=== PATIENT | male | born 1990 | race Caucasian/White ===

== ENCOUNTER 2016-12-30 06:22 | Emergency (ER) | payer BC, OTHER ==
[~2016-12-30] VITALS: Ht 172.7 cm; Wt 64.2 kg
[2016-12-30 06:34] VITALS: BP 169/90; PULSE 92; RESP 18; TEMP 98.7; O2SAT 99
[2016-12-30 06:36] VITALS: BP 169/90; PULSE 92; RESP 18; TEMP 98.7; O2SAT 99
--- NOTE | 2016-12-30 06:44 | PD ---
HPI Chief Complaint: Numbness/Tingling Time Seen by Provider: 06:35 Travel History International Travel<30 days: No Contact w/Intl Traveler<30days: No Traveled to known affect area: No History of Present Illness HPI The patient is a 26-year-old male who has multiple complaints beginning approximately 7 PM yesterday. He has tingling in his chest, numbness on his entire left arm, a feeling of hotness over the entire face and tingling in both feet. He has a history of alcohol overdose in 2015 where these alcohol level is 269 and his toxicology's [place] showed positive for opiates. He states for the last 3 days he has had nausea, vomiting and diarrhea. He has been replacing his fluids with Gatorade and water. He drinks 416 ounce beers per week. He is not on any medications. PFSH Past Medical History Blood Disorders: No Cancer: No Cardiovascular Problems: No Diminished Hearing: No Endocrine: No Genitourinary: No Musculoskeletal: No Neurologic: No Psychiatric: No Reproductive: No Respiratory: No Integumentary: Yes (DERMATITIS) Social History Alcohol Use: Yes (3 TIMES/WEEK) Tobacco Use: Yes (1 PPD) Substance Use: No Allergies-Medications (Allergen,Severity, Reaction): Coded Allergies: No Known Allergies (Unverified , 12/30/16) Reported Meds & Prescriptions Reported Meds & Active Scripts Active No Active Prescriptions or Reported Medications Review of Systems Except as stated in HPI: all other systems reviewed are Neg Physical Exam Narrative GENERAL: The patient is alert, oriented 3, possibly slightly dehydrated in no apparent distress. His vital signs show blood pressure 169/90 with pulse rate of 92 but otherwise normal. SKIN: Focused skin assessment warm/dry. No skin rash is seen. HEAD: Atraumatic. Normocephalic. EYES: Pupils equal and round. No scleral icterus. No injection or drainage. ENT: No nasal bleeding or discharge. Mucous membranes pink and moist. NECK: Trachea midline. No JVD. CARDIOVASCULAR: Regular rate and rhythm. No murmur appreciated. RESPIRATORY: No accessory muscle use. Clear to auscultation. Breath sounds equal bilaterally. GASTROINTESTINAL: Abdomen soft, non-tender, nondistended. Hepatic and splenic margins not palpable. MUSCULOSKELETAL: No obvious deformities. No clubbing. No cyanosis. No edema. NEUROLOGICAL: Awake and alert. No obvious cranial nerve deficits. Motor grossly within normal limits. Normal speech and gait. PSYCHIATRIC: Appropriate mood and affect; insight and judgment normal. Data Data Last Documented VS Vital Signs Date Time Temp Pulse Resp B/P Pulse Ox O2 Delivery O2 Flow Rate FiO2 12/30/16 06:36 98.7 92 18 169/90 99 Room Air Orders Complete Blood Count With Diff (12/30/16 06:36) Comprehensive Metabolic Panel (12/30/16 06:36) Urinalysis - C+S If Indicated (12/30/16 06:36) Magnesium (Mg) (12/30/16 06:36) Chest, Pa & Lat (12/30/16 06:36) Ct Brain W/O Iv Contrast(Rout) (12/30/16 06:36) Drug Screen, Random Urine (12/30/16 06:36) Alcohol (Ethanol) (12/30/16 06:36) Tylenol (Acetaminophen) (12/30/16 06:36) Sodium Chlor 0.9% 1000 Ml Inj (Ns 1000 M (12/30/16 07:00) Labs Laboratory Tests Test 12/30/16 06:35 White Blood Count 6.0 TH/MM3 Red Blood Count 5.48 MIL/MM3 Hemoglobin 16.6 GM/DL Hematocrit 48.2 % Mean Corpuscular Volume 87.9 FL Mean Corpuscular Hemoglobin 30.3 PG Mean Corpuscular Hemoglobin 34.5 % Concent Red Cell Distribution Width 11.7 % Platelet Count 305 TH/MM3 Mean Platelet Volume 6.7 FL Neutrophils (%) (Auto) 52.5 % Lymphocytes (%) (Auto) 36.0 % Monocytes (%) (Auto) 8.5 % Eosinophils (%) (Auto) 1.2 % Basophils (%) (Auto) 1.8 % Neutrophils # (Auto) 3.1 TH/MM3 Lymphocytes # (Auto) 2.2 TH/MM3 Monocytes # (Auto) 0.5 TH/MM3 Eosinophils # (Auto) 0.1 TH/MM3 Basophils # (Auto) 0.1 TH/MM3 CBC Comment DIFF FINAL Differential Comment MDM Medical Decision Making Medical Screen Exam Complete: Yes Emergency Medical Condition: Yes Medical Record Reviewed: Yes Differential Diagnosis Gastroenteritis, dehydration, electrolyte imbalance, CVAunlikely, alcohol/drug overdoseunlikely Narrative Course It is now 0700 and the patient is transferred to Dr. Alcazar. Scripts No Active Prescriptions or Reported Meds Kenan Galvan MD Dec 30, 2016 06:44
[2016-12-30 06:49] LABS: AUTOMATED NEUTROPHIL # 3.1 TH/MM3 (1.8-7.7); BASOPHIL # 0.1 TH/MM3 (0-0.2); BASOPHIL % 1.8 % (0.0-2.0); EOSINOPHIL # 0.1 TH/MM3 (0-0.4); EOSINOPHIL % 1.2 % (0.0-4.0); HEMATOCRIT 48.2 % (39.0-51.0); HEMO FLAGS DIFF FINAL; LYMPHOCYTE # 2.2 TH/MM3 (1.0-4.8); MEAN CELL VOLUME 87.9 FL (80.0-100.0); MEAN CORPUSCULAR HEMOGLOBIN 30.3 PG (27.0-34.0); MEAN CORPUSCULAR HGB CONC 34.5 % (32.0-36.0); MONO % 8.5 % (0.0-8.0); NEUT % 52.5 % (16.0-70.0); PLATELET COUNT 305 TH/MM3 (150-450); RED BLOOD COUNT 5.48 MIL/MM3 (4.50-5.90); RED CELL DISTRIBUTION WIDTH 11.7 % (11.6-17.2)
[2016-12-30 06:59] LABS: CHLORIDE 101 MEQ/L (98-107); POTASSIUM 3.7 MEQ/L (3.5-5.1); SODIUM (NA) 138 MEQ/L (136-145)
[2016-12-30 06:59] LABS: BLOOD, URINE NEG (NEG); GLUCOSE,URINE NEG (NEG); KETONE, URINE 15 mg/dL (NEG); NITRITE,URINE NEG (NEG)
[2016-12-30] MEDS ORDERED: SODIUM CHLOR 0.9% 1000 ML INJ 1,000 ML IV ONE ×2 (07:00→07:15)
[2016-12-30 07:02] LABS: METHOD OF COLLECTION CLEAN CATCH; URINE COLOR YELLOW (YELLW/STRAW)
[2016-12-30 07:03] LABS: ANION GAP 12 MEQ/L (5-15); BICARBONATE 25.5 MEQ/L (21.0-32.0); MAGNESIUM 2.1 MG/DL (1.5-2.5)
[2016-12-30 07:03] LABS: CULTURE IF INDICATED CULT NOT INDICATED; RBC, URINE 0-3 /hpf (0-3); SQUAMOUS EPITHELIAL CELL URINE 0-5 /hpf (0-5)
[2016-12-30 07:04] LABS: COMMENT (UR) CULT NOT INDICATED; COMMENT2 (UR) MUCOUS PRESENT
[2016-12-30 07:04] LABS: BLOOD UREA NITROGEN 9 MG/DL (7-18)
[2016-12-30 07:05] LABS: AMPHETAMINE, URINE NEG (NEG); BARBITURATES, URINE NEG (NEG); COCAINE, URINE NEG (NEG)
[2016-12-30 07:06] LABS: ALT (GPT) 37 U/L (12-78); AST (GOT) 39 U/L (15-37)
[2016-12-30 07:07] LABS: GLOMERULAR FILTRATION RATE 96 ML/MIN (>89)
[2016-12-30 07:08] LABS: TOTAL BILIRUBIN ADULT 1.7 MG/DL (0.2-1.0)
[2016-12-30 07:09] LABS: ALKALINE PHOSPHATASE 84 U/L (45-117)
--- NOTE | 2016-12-30 07:14 | RADHPO ---
EXAM DATE/TIME: 12/30/2016 06:44 [facility] COMPARISON: No previous studies available for comparison. INDICATIONS : Left sides extremity numbness and tingling. RADIATION DOSE: 64.62 CTDIvol (mGy) MEDICAL HISTORY : None SURGICAL HISTORY : None. ENCOUNTER: Initial ACUITY: 1 day PAIN SCALE: 0/10 LOCATION: cranial TECHNIQUE: Multiple contiguous axial images were obtained of the head. Using automated exposure control and adj ustment of the mA and/or kV according to patient size, radiation dose was kept as low as reasonably a chievable to obtain optimal diagnostic quality images. FINDINGS: CEREBRUM: The ventricles are normal for age. No evidence of midline shift, mass lesion, hemorrhage or acute in farction. No extra-axial fluid collections are seen. POSTERIOR FOSSA: The cerebellum and brainstem are intact. The 4th ventricle is midline. The cerebellopontine angle i s unremarkable. EXTRACRANIAL: The visualized portion of the orbits is intact. SKULL: The calvaria is intact. No evidence of skull fracture. CONCLUSION: Normal examination for a patient of this age. Willem Alonzo MD on December 30, 2016 at 7:12 Board Certified Radiologist. This report was verified electronically.
[2016-12-30] MEDS ORDERED: ONDANSETRON HCL 4 MG/2 ML VIAL IV PUSH ONE (07:15)
[2016-12-30] MEDS ORDERED: LORazepam 2 MG/ML VIAL IV PUSH ONE (07:15)
--- NOTE | 2016-12-30 07:16 | PD ---
Physical Exam Date Seen by Provider: Dec 30, 2016 Data Data Last Documented VS Vital Signs Date Time Temp Pulse Resp B/P Pulse Ox O2 Delivery O2 Flow Rate FiO2 12/30/16 06:36 98.7 92 18 169/90 99 Room Air Orders Complete Blood Count With Diff (12/30/16 06:36) Comprehensive Metabolic Panel (12/30/16 06:36) Urinalysis - C+S If Indicated (12/30/16 06:36) Magnesium (Mg) (12/30/16 06:36) Chest, Pa & Lat (12/30/16 06:36) Ct Brain W/O Iv Contrast(Rout) (12/30/16 06:36) Drug Screen, Random Urine (12/30/16 06:36) Alcohol (Ethanol) (12/30/16 06:36) Tylenol (Acetaminophen) (12/30/16 06:36) Sodium Chlor 0.9% 1000 Ml Inj (Ns 1000 M (12/30/16 07:00) Electrocardiogram (12/30/16 ) Sodium Chlor 0.9% 1000 Ml Inj (Ns 1000 M (12/30/16 07:15) Ondansetron Inj (Zofran Inj) (12/30/16 07:15) Lorazepam Inj (Ativan Inj) (12/30/16 07:15) Labs Laboratory Tests Test 12/30/16 12/30/16 06:35 06:45 White Blood Count 6.0 TH/MM3 Red Blood Count 5.48 MIL/MM3 Hemoglobin 16.6 GM/DL Hematocrit 48.2 % Mean Corpuscular Volume 87.9 FL Mean Corpuscular Hemoglobin 30.3 PG Mean Corpuscular Hemoglobin 34.5 % Concent Red Cell Distribution Width 11.7 % Platelet Count 305 TH/MM3 Mean Platelet Volume 6.7 FL Neutrophils (%) (Auto) 52.5 % Lymphocytes (%) (Auto) 36.0 % Monocytes (%) (Auto) 8.5 % Eosinophils (%) (Auto) 1.2 % Basophils (%) (Auto) 1.8 % Neutrophils # (Auto) 3.1 TH/MM3 Lymphocytes # (Auto) 2.2 TH/MM3 Monocytes # (Auto) 0.5 TH/MM3 Eosinophils # (Auto) 0.1 TH/MM3 Basophils # (Auto) 0.1 TH/MM3 CBC Comment DIFF FINAL Differential Comment Sodium Level 138 MEQ/L Potassium Level 3.7 MEQ/L Chloride Level 101 MEQ/L Carbon Dioxide Level 25.5 MEQ/L Anion Gap 12 MEQ/L Blood Urea Nitrogen 9 MG/DL Creatinine 0.96 MG/DL Estimat Glomerular Filtration 96 ML/MIN Rate Random Glucose 104 MG/DL Calcium Level 8.8 MG/DL Magnesium Level 2.1 MG/DL Total Bilirubin 1.7 MG/DL Aspartate Amino Transf 39 U/L (AST/SGOT) Alanine Aminotransferase 37 U/L (ALT/SGPT) Alkaline Phosphatase 84 U/L Total Protein 8.0 GM/DL Albumin 4.4 GM/DL Acetaminophen Level LESS THAN 2.0 MCG/ML Ethyl Alcohol Level LESS THAN 3 MG/DL Urine Collection Type CLEAN CATCH Urine Color YELLOW Urine Turbidity CLEAR Urine pH 6.0 Urine Specific [place] 1.016 Urine Protein NEG mg/dL Urine Glucose (UA) NEG mg/dL Urine Ketones 15 mg/dL Urine Occult Blood NEG Urine Nitrite NEG Urine Bilirubin NEG Urine Leukocyte Esterase NEG Urine RBC 0-3 /hpf Urine Squamous Epithelial 0-5 /hpf Cells Urine Amorphous Sediment FEW Microscopic Urinalysis Comment CULT NOT INDICATED Urine Collection Time 0645 Urine Opiates Screen NEG Urine Barbiturates Screen NEG Urine Amphetamines Screen NEG Urine Benzodiazepines Screen NEG Urine Cocaine Screen NEG Urine Cannabinoids Screen NEG MDM Medical Record Reviewed: Yes Supervised Visit with AKIL: Yes Interpretation(s) EKG at 0717: NSR at 67bpm, qt/qtc: 408/420, no st or t wave changes, pac's Vital Signs Date Time Temp Pulse Resp B/P Pulse Ox O2 Delivery O2 Flow Rate FiO2 12/30/16 06:36 98.7 92 18 169/90 99 Room Air 12/30/16 06:34 98.7 92 18 169/90 99 Laboratory Tests Test 12/30/16 12/30/16 06:35 06:45 White Blood Count 6.0 TH/MM3 (4.0-11.0) Red Blood Count 5.48 MIL/MM3 (4.50-5.90) Hemoglobin 16.6 GM/DL (13.0-17.0) Hematocrit 48.2 % (39.0-51.0) Mean Corpuscular Volume 87.9 FL (80.0-100.0) Mean Corpuscular Hemoglobin 30.3 PG (27.0-34.0) Mean Corpuscular Hemoglobin 34.5 % Concent (32.0-36.0) Red Cell Distribution Width 11.7 % (11.6-17.2) Platelet Count 305 TH/MM3 (150-450) Mean Platelet Volume 6.7 FL (7.0-11.0) Neutrophils (%) (Auto) 52.5 % (16.0-70.0) Lymphocytes (%) (Auto) 36.0 % (9.0-44.0) Monocytes (%) (Auto) 8.5 % (0.0-8.0) Eosinophils (%) (Auto) 1.2 % (0.0-4.0) Basophils (%) (Auto) 1.8 % (0.0-2.0) Neutrophils # (Auto) 3.1 TH/MM3 (1.8-7.7) Lymphocytes # (Auto) 2.2 TH/MM3 (1.0-4.8) Monocytes # (Auto) 0.5 TH/MM3 (0-0.9) Eosinophils # (Auto) 0.1 TH/MM3 (0-0.4) Basophils # (Auto) 0.1 TH/MM3 (0-0.2) CBC Comment DIFF FINAL Differential Comment Sodium Level 138 MEQ/L (136-145) Potassium Level 3.7 MEQ/L (3.5-5.1) Chloride Level 101 MEQ/L (98-107) Carbon Dioxide Level 25.5 MEQ/L (21.0-32.0) Anion Gap 12 MEQ/L (5-15) Blood Urea Nitrogen 9 MG/DL (7-18) Creatinine 0.96 MG/DL (0.60-1.30) Estimat Glomerular Filtration 96 ML/MIN (>89) Rate Random Glucose 104 MG/DL (74-106) Calcium Level 8.8 MG/DL (8.5-10.1) Magnesium Level 2.1 MG/DL (1.5-2.5) Total Bilirubin 1.7 MG/DL (0.2-1.0) Aspartate Amino Transf 39 U/L (15-37) (AST/SGOT) Alanine Aminotransferase 37 U/L (12-78) (ALT/SGPT) Alkaline Phosphatase 84 U/L (45-117) Total Protein 8.0 GM/DL (6.4-8.2) Albumin 4.4 GM/DL (3.4-5.0) Ethyl Alcohol Level LESS THAN 3 MG/DL (0-5) Urine Collection Type CLEAN CATCH Urine Color YELLOW (YELLW/STRAW) Urine Turbidity CLEAR (CLEAR) Urine pH 6.0 (5.0-8.5) Urine Specific [place] 1.016 (1.002-1.035) Urine Protein NEG mg/dL (NEG-TRACE) Urine Glucose (UA) NEG mg/dL (NEG) Urine Ketones 15 mg/dL (NEG) Urine Occult Blood NEG (NEG) Urine Nitrite NEG (NEG) Urine Bilirubin NEG (NEG) Urine Leukocyte Esterase NEG (NEG) Urine RBC 0-3 /hpf (0-3) Urine Squamous Epithelial 0-5 /hpf (0-5) Cells Urine Amorphous Sediment FEW Microscopic Urinalysis Comment CULT NOT INDICATED Urine Collection Time 0645 Urine Opiates Screen NEG (NEG) Urine Barbiturates Screen NEG (NEG) Urine Amphetamines Screen NEG (NEG) Urine Benzodiazepines Screen NEG (NEG) Urine Cocaine Screen NEG (NEG) Urine Cannabinoids Screen NEG (NEG) Last Impressions Head CT 12/30/16 0636 Signed Impressions: Service Date/Time: December 06:44 - CONCLUSION: Normal examination for a patient of this age. Willem Alonzo MD Differential Diagnosis Anxiety reaction, gastroenteritis, electrolyte abnormality, CVA though unlikely , dehydration Narrative Course Patient signed out to me by Dr. Galvan at change of shift Patient currently pending lab work as well as CT of the head. Patient is a 26-year-old male who presents to emergency room with multiple complaints. Patient reports that around 7AM this morning, he was at work, reports that he began to feel some numbness to his left arm, reports that the numbness then went to his right arm, and reports that he began to have a tingling sensation to both his feet as well as a "hot sensation" over his face. Patient reports that he began to have palpitations as well as a "butterfly sensation in my chest." Patient reports that he finished his task at work and came straight to the emergency room. Patient reports that for the past 3 days, he has had increased nausea, vomiting, diarrhea, reports that he has not been able to eat or drink in the past 3 days. Patient reports no fevers or chills or abdominal pain. Patient with no sick contacts. Patient reports that now while sitting in the ER bed, he has some tingling sensation to his nose. Reports that he has not had these symptoms in the past. GENERAL: NAD, Nontoxic SKIN: Focused skin assessment warm/dry. HEAD: Atraumatic. Normocephalic. EYES: Pupils equal and round. No scleral icterus. No injection or drainage. ENT: No nasal bleeding or discharge. Mucous membranes pink and dry NECK: Trachea midline. No JVD. CARDIOVASCULAR: Regular rate and rhythm. No murmur appreciated. RESPIRATORY: No accessory muscle use. Clear to auscultation. Breath sounds equal bilaterally. GASTROINTESTINAL: Abdomen soft, non-tender, nondistended. Hepatic and splenic margins not palpable. MUSCULOSKELETAL: No obvious deformities. No clubbing. No cyanosis. No edema. NEUROLOGICAL: Awake and alert. No obvious cranial nerve deficits. Motor grossly within normal limits. Normal speech. CN 2-12 grossly intact with no neuro deficits PSYCHIATRIC: Patient anxious on exam Patient nontoxic on evaluation, patient is alert and oriented 3, patient with no neurological deficits. Patient appears to be very anxious on exam with these nonspecific numbness throughout his whole body, and now he has some numbness to his nose. Patient reports some nausea vomiting and diarrhea for the past 3 days, plan to rehydrate patient and give antiemetics. I do believe the patient is anxious on exam, will give a dose of IV Ativan and then reevaluate patient. CBC WBC 6.0 Hemoglobin 16.6 Hematocrit 48.2 Platelets 305 Sodium 138 Potassium 3.7 BUN 9 Creatinine 0.96 Carbon dioxide 25.5 Chloride 101 Magnesium 2.1 AST 39 ALT 37 Alkaline phosphatase 84 UA: Significant for 15+ ketones UDS negative for opiates, negative for alcohol Last Impressions Head CT 12/30/16635 Signed Impressions: Service Date/Time: December 06:44 - CONCLUSION: Normal examination for a patient of this age. Willem Alonzo MD Chest X-Ray 12/30/16635 Signed Impressions: Service Date/Time: December 06:55 - CONCLUSION: Normal examination for a patient of this age. Willem Alonzo MD Patient reevaluated, patient feeling much better at this time. Patient reports relief of symptoms after Ativan as well as with IV fluids. Plan to have patient return to emergency room if symptoms return. Patient up with neurology as well as primary care doctor's outpatient. Signs and symptoms of when to return to ER was reviewed patient in detail. Diagnosis Primary Impression: Dehydration Additional Impressions: Arm paresthesia, left Arm paresthesia, right Bilateral leg paresthesia Facial paresthesia Anxiety Nausea vomiting and diarrhea Referrals: Briseyda Araya MD Patient Instructions: General Instructions Departure Forms: Tests/Procedures, Work Release Enter return to work date: Jan 03, 2017 Additional Instruction: Please follow-up with your primary care doctor in 2-3 days Please follow-up with neurologist as soon as possible Return to emergency room if symptoms progress or worsen Return to emergency needed Please drink plenty of fluids Scripts Ondansetron Odt (Zofran Odt)4 Mg Tab4 Mg SL Q6HR PRN (Nausea/Vomiting) #30 TAB Ref 0 Prov:Maddison Alcazar DO 12/30/16 Disposition: 01 DISCHARGE HOME Condition: Stable Maddison Alcazar DO Dec 30, 2016 07:16
--- NOTE | 2016-12-30 07:50 | RADHPO ---
EXAM DATE/TIME: 12/30/2016 06:55 [facility] COMPARISON: No previous studies available for comparison. INDICATIONS : Heart palpatations, left arm numbness, headache. MEDICAL HISTORY : None. SURGICAL HISTORY : None. ENCOUNTER: Initial ACUITY: 2 days PAIN SCORE: 0/10 LOCATION: chest FINDINGS: PA and lateral views of the chest demonstrate the lungs to be symmetrically aerated without evidence of mass, infiltrate or effusion. The cardiomediastinal contours are unremarkable. Osseous structure s are intact. CONCLUSION: Normal examination for a patient of this age. Willem Alonzo MD on December 30, 2016 at 7:49 Board Certified Radiologist. This report was verified electronically.
[2016-12-30 07:54] LABS: ACETAMINOPHEN LESS THAN 2.0 MCG/ML (10.0-30.0)
[2016-12-30] MEDS ORDERED: ZOFR4TAB3 SL (08:47)
[2016-12-30 08:54] VITALS: BP 129/73; PULSE 66; RESP 14; TEMP 98; O2SAT 100
--- NOTE | 2016-12-30 13:35 | EKG ---
Date Performed: 12/30/2016 Time Performed: 07:17:30 PTAGE: 26 years EKG: Sinus rhythm with PAC(s) Borderline ECG PREVIOUS TRACING : 06/09/2015 19.49 Compared to previous tracing the rate is slower. Nonspecif ic T wave changes have resolved. DOCTOR: Idris Han Interpretating Date/Time 12/30/2016 13:34:55
== END 2016-12-30 09:30 | disposition home or self-care (01) ==
LOC: PHED 06:22
DX: E86.0 Dehydration (principal); R20.2 Paresthesia of skin; R19.7 Diarrhea, unspecified; R11.2 Nausea with vomiting, unspecified; F41.9 Anxiety disorder, unspecified; R94.31 Abnormal electrocardiogram [ECG] [EKG]; R00.2 Palpitations; F17.210 Nicotine dependence, cigarettes, uncomplicated
CPT/HCPCS: 70450; 71020; 80053; 80307; 81001; 83735; 85025; 93005; 96361; 96374; 96375; 99284; J2060; J2405; J7030